=== PATIENT | female | born 1975 | race American Indian/Alaskan Native ===

== ENCOUNTER 2016-11-04 11:02 | Emergency (ER) | payer OTHER ==
[2016-11-04] MEDS ORDERED: BABY ASPIRIN PO ONE (11:08)
--- NOTE | 2016-11-04 11:08 | Emergency Department Report ---
Chief Complaint: Arrhythmia/Palpitations Stated Complaint: PALPATATIONS Time Seen by Provider: 11/04/16 11:05 - HPI History of Present Illness: pt states she was driving to work and she felt her heart race. PT states she could not slow it down. 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 PT states she had this happen in June or July and she had a stress test. - ROS Review of Systems: + anxiety - chest pain + palpitations - Exam Physical Exam: pt looks well, non toxic + tachycardic MSE screening note: Focused history and physical exam performed. Due to findings the following was ordered: ekg, labs, xr ED Disposition for MSE Condition: Stable
[2016-11-04 11:30] VITALS: BP 141/94
[2016-11-04 11:44] LABS: Basophils % (Auto) 1.2 % (0.0-1.8); Eosinophils % (Auto) 0.9 % (0.0-4.3); Hematocrit 39.3 % (30.3-42.9); Hemoglobin 13.2 gm/dl (10.1-14.3); Mean Corpuscular HGB Conc 34 % (30-34); Mean Corpuscular Hemoglobin 31 pg (28-32); Mean Corpuscular Volume 91 fl (79-97); Platelet Count 322 K/mm3 (140-440); Red Blood Count 4.34 M/mm3 (3.65-5.03); Red Cell Distribution Width 13.8 % (13.2-15.2); White Blood Count 4.6 K/mm3 (4.5-11.0)
[2016-11-04 11:53] LABS: INR 0.99 (0.87-1.13)
[2016-11-04 11:54] LABS: Partial Thromboplastin Time 31.5 Sec. (24.2-36.6)
[2016-11-04 12:02] LABS: Alanine Aminotransferase 21 units/L (7-56); Albumin 4.1 g/dL (3.9-5); Albumin/Globulin Ratio 1.1 %; Alkaline Phosphatase 54 units/L (35-129); Anion Gap 22 mmol/L; BUN/Creatinine Ratio 11.11; Blood Urea Nitrogen 10 mg/dL (7-17); Calcium 8.8 mg/dL (8.4-10.2); Carbon Dioxide 19 mmol/L (22-30); Chloride 101.4 mmol/L (98-107); Glucose 151 mg/dL (65-100); Potassium 3.9 mmol/L (3.6-5.0); Sodium 138 mmol/L (137-145); Total Protein 7.7 g/dL (6.3-8.2)
--- NOTE | 2016-11-04 12:43 | XRay Report ---
ROUTINE CHEST, TWO VIEWS: HISTORY: chest pain. The trachea, heart, mediastinal contour, lung mcallister and bony thorax are unremarkable. IMPRESSION: Unremarkable chest x-ray.
--- NOTE | 2016-11-24 15:08 | ED Elopement Review ---
ED Pt Elopement review - Results review Lab results: Laboratory Tests 11/04/16 11/04/16 11/04/16 11:14 11:14 11:14 WBC 4.6 RBC 4.34 Hgb 13.2 Hct 39.3 MCV 91 MCH 31 MCHC 34 RDW 13.8 Plt Count 322 Lymph % (Auto) 29.3 Howell % (Auto) 9.3 H Eos % (Auto) 0.9 Baso % (Auto) 1.2 Lymph # 1.3 Howell # 0.4 Eos # 0.0 Baso # 0.1 Seg Neutrophils % 59.3 Seg Neutrophils # 2.7 PT 13.0 INR 0.99 APTT 31.5 Sodium 138 Potassium 3.9 Chloride 101.4 Carbon Dioxide 19 L Anion Gap 22 BUN 10 Creatinine 0.9 Estimated GFR > 60 BUN/Creatinine Ratio 11.11 Glucose 151 H Calcium 8.8 Total Bilirubin 0.40 AST 20 ALT 21 Alkaline Phosphatase 54 Troponin T < 0.010 Total Protein 7.7 Albumin 4.1 Albumin/Globulin Ratio 1.1 HCG, Qual 11/04/16 11:14 WBC RBC Hgb Hct MCV MCH MCHC RDW Plt Count Lymph % (Auto) Howell % (Auto) Eos % (Auto) Baso % (Auto) Lymph # Howell # Eos # Baso # Seg Neutrophils % Seg Neutrophils # PT INR APTT Sodium Potassium Chloride Carbon Dioxide Anion Gap BUN Creatinine Estimated GFR BUN/Creatinine Ratio Glucose Calcium Total Bilirubin AST ALT Alkaline Phosphatase Troponin T Total Protein Albumin Albumin/Globulin Ratio HCG, Qual Negative - Call Back decision Pt Call Back Decision: Pt to F/U with PMD
== END 2016-11-04 14:41 | disposition left against medical advice (07) ==
LOC: ED 11:02
DX: R07.9 Chest pain, unspecified (principal); R00.0 Tachycardia, unspecified; Z53.21 Procedure and treatment not carried out due to patient leaving prior to being seen by health care provider
CPT/HCPCS: 36415; 71020; 80053; 84484; 84703; 85025; 85610; 85730; 93005; 93010